=== PATIENT | male | born 1955 | race Caucasian/White ===

== ENCOUNTER → 2018-10-16 | Outpatient (CLI) | payer OTHER ==
[~2018-10-16] MED LIST: ASPIRIN EC81 M1 PO; FISH OIL 1,2001 EAC4 PO; GLUCOSAMINE &1 EACH PO; LEVOTHROID75 MCG PO; MULTIVITAMINS PO; SIMVASTATIN40 MG PO; VITAMIN E400 UNIT PO; VITAMINC500 PO
== END ==
LOC: CAT 14:45
DX: Z13.6 Encounter for screening for cardiovascular disorders (principal); I25.10 Atherosclerotic heart disease of native coronary artery without angina pectoris; E78.00 Pure hypercholesterolemia, unspecified

== ENCOUNTER → 2019-10-30 | Outpatient (CLI) | payer BC | LOC: SJCVCIMAG 07:32 | PROVIDERS: ATTEND Family Medicine | DX: I25.10 Atherosclerotic heart disease of native coronary artery without angina pectoris (principal); I10 Essential (primary) hypertension; E78.5 Hyperlipidemia, unspecified ==

== ENCOUNTER → 2020-02-17 | Outpatient (CLI) | payer BC | LOC: RAD 11:29 | PROVIDERS: ATTEND Family Medicine | DX: T17.308D Unspecified foreign body in larynx causing other injury, subsequent encounter (principal) ==